=== PATIENT | female | born 1990 | race Two or more races ===

== ENCOUNTER 2016-12-20 21:19 | Emergency (ER) | payer SELFPAY ==
[~2016-12-20] VITALS: Ht 160 cm; Wt 86.2 kg
[2016-12-20 21:27] VITALS: BP 126/57
[2016-12-20 22:03] LABS: Basophils # (auto) 0 uL; Basophils % (auto) 0.3 % (0.0-2.0); CONDITION Y; Eosinophils # (auto) 0.1 uL; Eosinophils % (auto) 0.8 % (0.0-7.0); Hemoglobin 12.3 g/dL (12.2-16.2); Lymphocytes # (auto) 2.5 uL; Lymphocytes % (auto) 35.6 % (10.0-50.0); Mean Corpuscular Hemoglobin 32.1 pg (28.0-32.0); Mean Corpuscular Hgb Conc. 34.3 g/dL (32.0-36.0); Mean Corpuscular Volume 93.7 fL (80.0-100.0); Monocytes # (auto) 0.5 uL; Monocytes % (auto) 7.3 % (0.0-12.0); Platelet Count (auto) 265 10^3/uL (140-450); Red Cell Distribution Width 12.6 % (11.6-16.0); White Blood Cell 7.2 10^3/uL (4.4-10.8)
[2016-12-20 22:17] LABS: BUN/Creatinine Ratio 9.9; Calcium 8.9 mg/dL (8.5-10.1); Potassium 3.9 mmol/L (3.5-5.1)
[2016-12-20 22:37] LABS: Urine RBC None Seen /hpf (0 - 4)
[2016-12-20 22:48] LABS: Urine Bilirubin Negative (Negative); Urine Blood Negative /uL (Negative); Urine Color Yellow (Yellow); Urine Glucose Normal (Normal); Urine Ketone Negative (Negative); Urine Nitrite Negative (Negative); Urine Squamous Epithelial Cell FEW /hpf (<5); Urine Urobilinogen Normal (Negative)
== END 2016-12-21 07:16 | disposition home or self-care (01) ==
LOC: ER 21:26
DX: O26.891 Other specified pregnancy related conditions, first trimester (principal); R10.9 Unspecified abdominal pain; Q71.6 Lobster-claw hand; Z3A.08 8 weeks gestation of pregnancy
CPT/HCPCS: 36415; 76801; 76817; 80048; 81001; 81025; 83690; 84702; 85025; 86901

== ENCOUNTER 2017-05-16 16:05 | Observation (INO) | payer MEDICAID ==
[~2017-05-16] VITALS: Ht 157.5 cm; Wt 88.5 kg
[2017-05-16] MEDS ORDERED: LACTATED RINGER'S 1,000 ML IV ONE (17:30)
[2017-05-16] MEDS ORDERED: ONDANSETRON HCL 4 MG/2 ML VIAL IV PRN (18:00)
[2017-05-16] MEDS: TERBUTALINE SULFATE 1 MG/ML 1ML VIAL SC SCH ×3 (18:22→20:05)
[2017-05-16] MEDS ORDERED: HYDR250I6 IM (18:59)
[2017-05-16] MEDS ORDERED: PREN-96 PO (18:59)
[2017-05-16 20:56] LABS: Urine Bilirubin Negative (Negative); Urine Blood Negative /uL (Negative); Urine Color Yellow (Yellow); Urine Glucose Normal (Normal); Urine Ketone 3+ (Negative); Urine Mucus FEW (None Seen); Urine Nitrite Negative (Negative); Urine RBC <1 /hpf (0 - 4); Urine Squamous Epithelial Cell FEW /hpf (<5); Urine Urobilinogen Normal (Negative); Urine pH 5.5 (5.0-8.0)
[2017-05-17] MEDS ORDERED: DOXY10TA OR (11:44)
[2017-05-17] MEDS ORDERED: NIF10C PO (11:44)
== END 2017-05-16 21:17 | disposition home or self-care (01) | DRG 566 ==
LOC: LDRP 16:05
PROVIDERS: ADMIT Specialist; ATTEND Specialist
DX: O21.2 Late vomiting of pregnancy (principal); E86.0 Dehydration; O26.893 Other specified pregnancy related conditions, third trimester; O99.613 Diseases of the digestive system complicating pregnancy, third trimester; K52.9 Noninfective gastroenteritis and colitis, unspecified; Z3A.30 30 weeks gestation of pregnancy
CPT/HCPCS: 59025; 81001; 81002; 94760; 96361; 96372; 96374; G0378; J2405; J3105; 96365; 96366

== ENCOUNTER 2017-05-17 11:15 | Observation (INO) | payer MEDICAID ==
[~2017-05-17] VITALS: Ht 157.5 cm; Wt 87.1 kg
[~2017-05-17 11:15] MED LIST: HYDR250I6 IM; PREN-96 PO
[2017-05-17] MEDS ORDERED: DOXY10TA OR (11:44)
[2017-05-17] MEDS ORDERED: NIF10C PO (11:44)
[2017-05-17] MEDS ORDERED: BETAMETHASONE ACET (6MG/ML) 5ML VIAL ONE (11:51)
[2017-05-18] MEDS ORDERED: BETAMETHASONE ACET (6MG/ML) 5ML VIAL IM SCH (10:00)
== END 2017-05-17 12:30 | disposition home or self-care (01) | DRG 566 ==
LOC: LDRP 11:15
PROVIDERS: ADMIT Specialist; ATTEND Specialist
DX: O26.893 Other specified pregnancy related conditions, third trimester (principal); M54.9 Dorsalgia, unspecified; Z3A.30 30 weeks gestation of pregnancy
CPT/HCPCS: 59025; 81002; 96372; G0378; J0702

== ENCOUNTER 2017-05-18 12:05 | Observation (INO) | payer MEDICAID ==
[~2017-05-18 12:05] MED LIST changes: +DOXY10TA OR; +NIF10C PO
== END 2017-05-18 13:05 | disposition home or self-care (01) | DRG 563 ==
LOC: LDRP 12:05
PROVIDERS: ADMIT Obstetrics & Gynecology; ATTEND Obstetrics & Gynecology
DX: O60.03 Preterm labor without delivery, third trimester (principal); Z3A.30 30 weeks gestation of pregnancy
CPT/HCPCS: 59025; 81002; G0378; 96372

== ENCOUNTER 2017-05-24 20:49 | Observation (INO) | payer MEDICAID ==
[~2017-05-24] VITALS: Ht 157.5 cm; Wt 88.0 kg
[2017-05-24] MEDS ORDERED: NIFEdipine 10 MG CAP PO ONE (22:15)
== END 2017-05-24 23:21 | disposition home or self-care (01) | DRG 563 ==
LOC: LDRP 20:49
PROVIDERS: ADMIT Specialist; ATTEND Specialist
DX: O60.03 Preterm labor without delivery, third trimester (principal); Z3A.31 31 weeks gestation of pregnancy
CPT/HCPCS: 59025; 76815; 81002; G0378

== ENCOUNTER 2017-05-31 12:40 | Observation (INO) | payer MEDICAID | END 2017-05-31 13:30 | disposition home or self-care (01) | DRG 566 | LOC: LDRP 12:40 | PROVIDERS: ADMIT Obstetrics & Gynecology; ATTEND Obstetrics & Gynecology | DX: O26.893 Other specified pregnancy related conditions, third trimester (principal); Z3A.32 32 weeks gestation of pregnancy | CPT/HCPCS: 59025; 81002; G0378 ==

== ENCOUNTER 2017-06-07 11:40 | Observation (INO) | payer MEDICAID | END 2017-06-07 13:05 | disposition home or self-care (01) | DRG 566 | LOC: LDRP 11:40 | PROVIDERS: ADMIT Obstetrics & Gynecology; ATTEND Obstetrics & Gynecology | DX: O62.9 Abnormality of forces of labor, unspecified (principal); Z3A.33 33 weeks gestation of pregnancy | CPT/HCPCS: 59025; 81002; G0378 ==

== ENCOUNTER 2017-06-14 11:20 | Observation (INO) | payer MEDICAID | END 2017-06-14 12:20 | disposition home or self-care (01) | DRG 563 | LOC: LDRP 11:20 | PROVIDERS: ADMIT Obstetrics & Gynecology; ATTEND Obstetrics & Gynecology | DX: O60.03 Preterm labor without delivery, third trimester (principal); O26.893 Other specified pregnancy related conditions, third trimester; Z3A.34 34 weeks gestation of pregnancy; R51 Headache | CPT/HCPCS: 59025; 81002; G0378 ==

== ENCOUNTER 2017-06-21 12:20 | Observation (INO) | payer MEDICAID | END 2017-06-21 13:55 | disposition home or self-care (01) | DRG 566 | LOC: LDRP 12:20 | PROVIDERS: ADMIT Specialist; ATTEND Specialist | DX: O21.9 Vomiting of pregnancy, unspecified (principal); O26.899 Other specified pregnancy related conditions, unspecified trimester; R10.10 Upper abdominal pain, unspecified; R19.7 Diarrhea, unspecified; M54.5 Low back pain; Z3A.35 35 weeks gestation of pregnancy | CPT/HCPCS: 59025; 81002; G0378 ==